=== PATIENT | female | born 1995 | race African-American/Black ===

== ENCOUNTER 2021-12-17 14:47 | Outpatient (REF) | payer MEDICAID, SELFPAY ==
[2021-12-17 15:01] LABS: MANUAL DIFF FLAG NO
[2021-12-17 15:54] LABS: Basophils Absolute Auto 0.1 X10*3/uL (0.0-0.2); Basophils Percent Auto 0.7 % (0-2); Eosinophils Absolute Auto 0.1 X10*3/uL (0.0-0.4); Eosinophils Percent Auto 1.4 % (0-4); Hematocrit 37.7 % (37.0-47.0); Hemoglobin 12.4 g/dl (12.0-16.0); Imm Gran Abs Auto 0.07 X10*3/uL (0.00-0.03); Imm Gran Pct Auto 0.7 % (0.0-0.4); Lymphocytes Percent Auto 30.7 % (20-40); Mean Corpuscular HGB Conc 32.9 g/dl (31.0-35.0); Mean Corpuscular Hemoglobin 28.4 pg (27.0-33.0); Mean Corpuscular Volume 86.3 fL (80.0-98.0); Mean Platelet Volume 10.3 fL (9.4-12.3); Monocytes Absolute Auto 0.9 X10*3/uL (0.1-1.2); Monocytes Percent Auto 8.7 % (2-11); Neutrophils Absolute Auto 5.7 x10*3/uL (2.0-8.3); Neutrophils Percent Auto 57.8 % (45-73); Platelet Count 328 X10*3/uL (160-400); Red Blood Count 4.37 X10*6/uL (4.20-5.50); Red Cell Distribution Width 13.2 % (11.0-16.0); White Blood Count 9.9 X10*3/uL (4.8-10.8)
[2021-12-17 16:15] LABS: Alanine Aminotransferase 16 U/L (0-31); Albumin Level 4.1 g/dL (3.5-5.0); Alkaline Phosphatase 84 U/L (39-117); Aspartate Amino Transferase 21 U/L (5-31); Bilirubin Direct 0.4 mg/dL (0.0-0.5); Bilirubin Total 0.8 mg/dL (0.0-1.0); Total Protein 7.2 g/dL (6.5-8.0)
[2021-12-17 16:35] LABS: TSH reflex Free T4 0.95 uIU/mL (0.32-4.0)
[2021-12-20 23:06] LABS: Gliadin Deamidated IgA Ab <1.0 U/mL; Gliadin Deamidated IgG Ab <1.0 U/mL; Transglutaminase Ab IgG <1.0 U/mL; Transglutaminase IgA <1.0 U/mL
[2021-12-21 11:37] LABS: Immunoglobulin A 182 mg/dL (47-310)
[2021-12-22 14:02] LABS: Endomysial IgA Antibody Negative (Negative)
== END 2021-12-17 14:48 | disposition home or self-care (01) ==
LOC: HO.LAB 14:47
PROVIDERS: PCP Internal Medicine; Visit Provider Internal Medicine
DX: K58.1 Irritable bowel syndrome with constipation (principal); R10.84 Generalized abdominal pain
CPT/HCPCS: 36415; 80076; 82784; 84443; 85025; 86231; 86258; 86364

== ENCOUNTER 2022-01-03 10:36 | Day surgery (SDC) | payer MEDICAID, SELFPAY ==
--- NOTE | 2021-12-31 11:02 | P.CONAN_ITS ---
Documented by User: Cristina Edmond NP 12/31/21 11:03 HPI - Anesthesia Eval Consult details Narrative: 26yo F for Upper Endoscopy and Colonoscopy COUNTS INCLUDE 234 BEDS AT THE [facility] Past Medical History Medical History (Updated 12/29/21 @ 09:55 by Diana Liu RN) IBS (irritable bowel syndrome) Surgical History Surgical History (Updated 12/29/21 @ 09:55 by Diana Liu RN) Hx of tonsillectomy Social History Social History Patient Tobacco Use Status: Never used Tobacco Use of substances other than those prescribed or required for medical reasons: No Are you DNR?: No Advance Directives: No Advance Directives Information Provided: Yes Meds Allergies Allergy/AdvReac Type Severity Reaction Status Date / Time latex [LATEX] Allergy Intermediate RASH Verified 01/03/22 11:04 sulfamethoxazole Allergy Unknown Unknown Verified 01/03/22 11:04 [From Bactrim] trimethoprim [From Bactrim] Allergy Unknown Unknown Verified 01/03/22 11:04 Home Medications Medication Instructions Recorded Confirmed Last Taken Type cholecalciferol (vitamin D3) 50 50 mcg PO DAILY 12/29/21 12/29/21 Unknown History mcg (2,000 unit) capsule (Vitamin D3) cyanocobalamin (vitamin B-12) 100 100 mcg PO DAILY 12/29/21 12/29/21 Unknown History mcg tablet (Vitamin B-12) fluticasone furoate 27.5 1 spray INTRANASAL DAILY 12/29/21 12/29/21 Unknown History mcg/actuation nasal spray,suspension (Flonase Sensimist) linaclotide 72 mcg capsule 72 mcg PO QAM 12/29/21 12/29/21 Unknown History (Linzess) Exam Exam Date and Time: December 31, 2021 1102 Pertinent Lab Results Pertinent Lab Results: Laboratory Tests 12/17/21 15:00 WBC 9.9 Hgb 12.4 Hct 37.7 Plt Count 328 Assessment and Plan Assessment Anesthesia Assessment: Chart Reviewed Documented by User: Dillan Olivo MD 01/03/22 17:17 COUNTS INCLUDE 234 BEDS AT THE [facility] Past Medical History Medical History (Updated 12/29/21 @ 09:55 by Diana Liu, RICKY) IBS (irritable bowel syndrome) Family History Family history of problems with anesthesia: No Surgical History Surgical History (Updated 12/29/21 @ 09:55 by Diana Liu RN) Hx of tonsillectomy History of Problems with Anesthesia: No Social History Social History Patient Tobacco Use Status: Never used Tobacco Use of substances other than those prescribed or required for medical reasons: No Are you DNR?: No Advance Directives: No Advance Directives Information Provided: Yes Meds Allergies Allergy/AdvReac Type Severity Reaction Status Date / Time latex [LATEX] Allergy Intermediate RASH Verified 01/03/22 11:04 sulfamethoxazole Allergy Unknown Unknown Verified 01/03/22 11:04 [From Bactrim] trimethoprim [From Bactrim] Allergy Unknown Unknown Verified 01/03/22 11:04 Home Medications Medication Instructions Recorded Confirmed Last Taken Type cholecalciferol (vitamin D3) 50 50 mcg PO DAILY 12/29/21 12/29/21 Unknown History mcg (2,000 unit) capsule (Vitamin D3) cyanocobalamin (vitamin B-12) 100 100 mcg PO DAILY 12/29/21 12/29/21 Unknown History mcg tablet (Vitamin B-12) fluticasone furoate 27.5 1 spray INTRANASAL DAILY 12/29/21 12/29/21 Unknown History mcg/actuation nasal spray,suspension (Flonase Sensimist) linaclotide 72 mcg capsule 72 mcg PO QAM 12/29/21 12/29/21 Unknown History (Linzess) Exam Airway Mallampati Class: I TM Dist: >3cm Neck ROM: Full Loose/Missing/Broken Teeth: Yes (Chipped teeth ) Heart: S1 , S2 Lungs: b/l breath sounds Assessment and Plan Assessment Anesthesia Assessment: Anesthesia Plan Discussed Final Anesthetic Review Family History of Problems with Anesthesia: No History of Problems with Anesthesia: No NPO: Yes ASA Class: II Final Preanesthetic Review: No Changes in Pt Med Stat, Meds/Allgs Chart Reviewed, Consent Obtained/Reviewed and Anes Risks/Benef Reviewed Patient Risk: Intermediate Procedure Risk: Intermediate Anesthetic Plan Anesthetic Plan: MAC: Disposition: Standard PACU
[2022-01-03] VITALS (8 sets, daily range): BP systolic 102–132; BP diastolic 64–78; PULSE 53–86; RESP 16–18; TEMP 36.7–36.8; O2SAT 99–100; BMI 29.0
[2022-01-03 11:24] LABS: UPreg QC Valid YES; Urine Pregnancy NEGATIVE (NEGATIVE)
[2022-01-03] MEDS: Lactated Ringers 1,000 ML 100 ML IVCONT (11:28)
--- NOTE | 2022-01-03 13:59 | PM.OP ---
Brief Operative Note Date of Service: 01/03/22 Pre-op diagnosis: GERD, Constipation, Rectal bleeding Post-op diagnosis: other (Normal EGD and Colonoscopy) Procedure: EGD with biopsies, Colonoscopy to the cecum and TI Surgeon: Shlomo Lyn Anesthesia: MAC Was an Account Development Manager used for this Procedure?: No Estimated blood loss (mL): 2.0 Pathology: other (A. Descending duodenum B. Gastric antrum C. EG Junction at 36cm) Condition: stable Disposition: PACU
[2022-01-03] MEDS: Acetaminophen 325 MG TABLET 650 MG PO (14:20)
--- NOTE | 2022-01-04 01:08 | OP_ITS ---
SURGEON: Shlomo Lyn MD INDICATIONS: The patient presents for evaluation of irregular bowel movements, gastroesophageal reflux, and rare episodes of hematochezia. Full consent has been obtained from her for this, including risks of bleeding and perforation. PREOPERATIVE DIAGNOSIS: POSTOPERATIVE DIAGNOSIS: PROCEDURE PERFORMED: Esophagogastroduodenoscopy with biopsies, and colonoscopy to the cecum and terminal ileum. ESTIMATED BLOOD LOSS: COMPLICATIONS: ANESTHESIA: Medication used, monitored anesthesia care. ASSISTANTS: SPECIMENS: PREOPERATIVE DIAGNOSES: Gastroesophageal reflux, irregular bowel movements, hematochezia. POSTOPERATIVE DIAGNOSES: Gastroesophageal reflux, irregular bowel movements, hematochezia, normal upper endoscopy, rule out celiac disease, normal colonoscopy. DESCRIPTION OF PROCEDURE: The patient was placed in the left lateral decubitus position. The Olympus video gastroscope was passed in the posterior oropharynx and upper esophagus under direct vision. The scope was passed slowly into the distal esophagus. The gastroesophageal junction appeared normal at 36 cm. There was no sign of any esophagitis nor Alanis esophagus. The scope entered into the stomach. There was no appreciable hiatal hernia. The scope was advanced to the pylorus and the duodenum was cannulated to the descending portion. The duodenum including the bulb appeared normal without mass or ulceration. Biopsies were obtained from the 2nd and 3rd portions of duodenum. The scope was withdrawn back in the stomach. The gastric antrum and body appeared normal with good peristalsis. Biopsies were obtained from the gastric antrum. The scope was retroflexed visualizing the proximal stomach carefully, which appeared normal, without any sign of mass or ulceration. The scope was straightened and withdrawn back to the esophagus. Biopsies were obtained at the EG junction at 36 cm. Proximal to this, the esophageal mucosa appeared normal. The scope was withdrawn from the patient. She was turned around for the colonoscopy. The digital rectal exam revealed no abnormalities. The Olympus video pediatric colonoscope was entered into the rectum and advanced easily to the cecum. Once in the cecum, I did identify normal-appearing cecal pouch with appendiceal orifice and a normal-appearing ileocecal valve. The terminal ileum was cannulated and appeared normal. The scope was withdrawn back in the colon. The entire cecum and ileocecal valve appeared normal. The scope was then slowly withdrawn assessing all mucosal surfaces carefully. Preparation was excellent. I did not visualize any sign of polyps, colitis, nor angiodysplasia. In the rectum, the scope was retroflexed visualizing normal rectal mucosa and no pathology. The scope was straightened and withdrawn from the patient. She tolerated both procedures well and was returned to the recovery area in stable condition. IMPRESSION: 1. Normal upper endoscopy, rule out celiac disease. 2. Normal colonoscopy. PLAN: The patient has been advised to continue her Linzess 145 mcg either daily or every other day to help facilitate a more regular bowel pattern. She will also use dicyclomine as needed for any abdominal discomfort. Recent laboratories were all normal including a celiac disease profile, thyroid studies, CBC, and liver profile. She is scheduled for an abdominal ultrasound later this month. She will be seen in the fall for a followup visit. This has been discussed with the patient and her family. MD DAVIS Salas/GEMMA / [id number] MTDD
== END 2022-01-03 16:04 | disposition home or self-care (01) ==
PROVIDERS: Nurse Practitioner; PCP Internal Medicine; Visit Provider Internal Medicine
PROC: (CPT 45378; principal; 2022-01-03 11:50)
DX: K62.5 Hemorrhage of anus and rectum (principal); K58.1 Irritable bowel syndrome with constipation; K21.9 Gastro-esophageal reflux disease without esophagitis; R10.84 Generalized abdominal pain; R11.0 Nausea; Z79.899 Other long term (current) drug therapy; Z88.2 Allergy status to sulfonamides; Z91.040 Latex allergy status
CPT/HCPCS: 45378; 43239; 81025; 88305; 88342; J2250

== ENCOUNTER 2022-01-13 08:35 | Outpatient (REF) | payer MEDICAID, SELFPAY ==
--- NOTE | ~2022-01-13 | US_ITS ---
EXAMINATION: US ABDOMEN COMPLETE CLINICAL INFORMATION: Generalized abdominal pain. COMPARISON: CT abdomen and pelvis 09/14/2016. TECHNIQUE: Real-time imaging of the abdominal viscera. FINDINGS: PANCREAS: Normal. ABDOMINAL AORTA: The proximal, mid, and distal segments are normal in caliber. INFERIOR VENA CAVA: Visualized portions are normal. LIVER: Normal. The liver is normal in size. The liver contour is normal. Parenchymal echogenicity is normal. No focal hepatic lesion. There is no intrahepatic biliary duct dilatation seen. GALLBLADDER: Normal. The gallbladder is physiologically distended without evidence of stones, sludge, polyps, wall thickening or pericholecystic fluid. COMMON BILE DUCT: Normal in caliber measuring 0.2 cm in diameter. RIGHT KIDNEY: Normal. No hydronephrosis. No renal calculi or focal parenchymal lesions. The kidney measures 10.2 cm in maximum dimension. LEFT KIDNEY: Normal. No hydronephrosis. No renal calculi or focal parenchymal lesions. The kidney measures 10.3 cm in maximum dimension. SPLEEN: Normal. The spleen measures 10.3 cm in maximum dimension. FREE FLUID: None. US/US abdomen complete IMPRESSION: No acute sonographic abnormalities to explain the patient's symptoms.
== END 2022-01-13 08:36 | disposition home or self-care (01) ==
LOC: HO.US 08:35
PROVIDERS: Visit Provider Internal Medicine
DX: R10.84 Generalized abdominal pain (principal)
CPT/HCPCS: 76700

== ENCOUNTER → 2022-06-09 13:08 | Outpatient (RCR) | payer OTHER, SELFPAY ==
[2020-07-21 14:21] LABS: COVID-19 Test Negative (Negative)
[2020-08-03 10:08] LABS: SARS-COV-2 PCR UMBRL Not Detected
[2020-08-08 13:56] LABS: SARS-COV-2 PCR UMBRL NOT DETECTED
== END | disposition home or self-care (01) ==
LOC: HO.EMPCOV 07-20 18:18
PROVIDERS: Visit Provider Internal Medicine
DX: Z20.828 Contact with and (suspected) exposure to other viral communicable diseases (principal)
CPT/HCPCS: 87635; C9803; U0003

== ENCOUNTER 2022-07-22 09:00 | Outpatient (RCR) | payer MEDICAID, SELFPAY | END 2022-09-01 11:21 | disposition home or self-care (01) | LOC: HO.PT 09:00 | PROVIDERS: PCP Internal Medicine; Visit Provider Physician Assistant Surgical | DX: M24.851 Other specific joint derangements of right hip, not elsewhere classified (principal); M24.852 Other specific joint derangements of left hip, not elsewhere classified | CPT/HCPCS: 97110; 97162; 97530 ==